=== PATIENT | male | born 1985 | race Caucasian/White ===

== ENCOUNTER → 2018-07-24 | Outpatient (CLI) | payer OTHER ==
[2014-10-20 22:16] VITALS: BP 135/71
--- NOTE | 2018-07-24 08:37 | RAD ---
CT HEAD WO CONTRAST History: Chronic migraine headache Comparison: None. Technique: Noncontrast CT imaging was performed of the head. Exposure: One or more of the following individualized dose reduction techniques were utilized for this examination: 1. Automated exposure control 2. Adjustment of the mA and/or kV according to patient size 3. Use of iterative reconstruction technique. Findings: No acute extra-axial or parenchymal hemorrhage is identified. There is no significant intra-axial mass effect, midline shift, or extra-axial fluid collection. The smith-white differentiation of the major vascular territories is preserved. The ventricles, sulci, and cisterns are within normal limits in size and configuration. Mastoid air cells are overall aerated. There is moderate left sphenoid sinus mucosal thickening, patchy mild ethmoid air cell mucosal thickening. No acute calvarial abnormality is identified. Impression: 1. No acute intracranial abnormality is identified. 2. There is moderate left sphenoid sinus mucosal thickening, minimal patchy ethmoid air cell mucosal thickening. Electronically signed by: Victor Manuel Martel MD (07/24/2018 8:34 AM) [id number]
== END | disposition home or self-care (01) ==
LOC: CT 08:02
PROVIDERS: ATTEND Nurse Practitioner Family
DX: G43.109 Migraine with aura, not intractable, without status migrainosus (principal)
CPT/HCPCS: 70450